=== PATIENT | female | born 1980 | race Caucasian/White ===

== ENCOUNTER 2018-03-13 16:00 | Inpatient (IN) | payer OTHER ==
[2018-03-13] MEDS ORDERED: CEFAZOLIN 3 GM in DEXTROSE 5% 100 ML IV (17:00)
[2018-03-13] MEDS ORDERED: METHYLERGONOVINE 0.2 MG INJ IM (17:00)
[2018-03-13] MEDS ORDERED: CARBOPROST 250 MCG INJ IM (17:00)
[2018-03-13] MEDS ORDERED: OXYTOCIN 30 UNITS/LR 500 ML IV ×2 (17:00→20:14)
[2018-03-13] MEDS: LACTATED RINGER'S 1,000 ML IV ×2 (17:14→19:29)
[2018-03-13 17:24] LABS: ADD MAN DIFF? NO
[2018-03-13 17:26] LABS: WHITE BLOOD COUNT 8.4 10^3/ul (4.8-10.8)
[2018-03-13 17:26] LABS: BASOPHILS % 0.5 % (0.0-2.0); EOSINOPHILS # 0.2 10^3/ul (0.0-0.5); EOSINOPHILS % 2.4 % (0.0-7.0); HEMATOCRIT 36.8 % (37.0-47.0); HEMOGLOBIN 12.4 g/dl (12.0-16.0); LYMPHOCYTES # 2.6 10^3/ul (0.8-2.9); LYMPHOCYTES % 30.7 % (15.0-51.0); MEAN CORPUSCULAR HEMOGLOBIN 29.9 pg (29.0-33.0); MEAN CORPUSCULAR HGB CONC 33.7 g/dl (32.0-37.0); MEAN CORPUSCULAR VOLUME 88.7 fl (82.0-101.0); MEAN PLATELET VOLUME 9.4 fl (7.4-10.4); MONOCYTE # 0.8 10^3/ul (0.3-0.9); MONOCYTES % 9.1 % (0.0-11.0); NEUTROPHIL # 4.8 10^3/ul (1.6-7.5); NEUTROPHILS % 56.8 % (39.0-77.0); PLATELET COUNT 284 10^3/UL (140-415); RED BLOOD COUNT 4.15 10^6/ul (4.20-5.40); RED CELL DISTRIBUTION WIDTH 13.4 % (11.5-14.5)
[2018-03-13 17:45] LABS: INR 0.93; PROTIME 12.5 Sec (11.9-14.9)
[2018-03-13 17:46] LABS: PARTIAL THROMBOPLASTIN TIME 31.5 Sec (25.0-35.0)
[2018-03-13 18:24] LABS: AMPHETAMINE/METHAMPHETAMINE NEGATIVE (NEGATIVE); BARBITURATES NEGATIVE (NEGATIVE); BENZODIAZEPINES NEGATIVE (NEGATIVE); CANNABINOIDS NEGATIVE (NEGATIVE); COCAINE NEGATIVE (NEGATIVE); OPIATES NEGATIVE (NEGATIVE)
[2018-03-13 18:24] LABS: HEPATITIS B SURFACE ANTIGEN NEGATIVE (NEGATIVE)
[2018-03-13] MEDS: FAMOTIDINE 20 MG INJ IV (19:28)
[2018-03-13] MEDS: METOCLOPRAMIDE 10 MG INJ IV (19:29)
[2018-03-13] MEDS ORDERED: morphine SULFATE/PF (10 MG/10 ML) INJ (19:48)
[2018-03-13] MEDS ORDERED: FENTAnyl 50 MCG/ML VIAL (19:48)
[2018-03-13] MEDS ORDERED: BUPIVACAINE 0.75%/DEXT (SPINAL) 2 ML INJ (19:48)
[2018-03-13] MEDS ORDERED: PHENYLephrine (100 MCG/ML) 5ML SYG (19:50)
[2018-03-13] MEDS ORDERED: ONDANSETRON 4 MG INJ (20:06)
[2018-03-13] MEDS ORDERED: DEXAMETHASONE 4 MG/ML 1 ML INJ (20:06)
[2018-03-13] MEDS ORDERED: ZOLPIDEM 5 MG TAB PO (22:30)
[2018-03-13] MEDS ORDERED: ONDANSETRON 4 MG INJ IV (22:30)
[2018-03-13] MEDS ORDERED: NALOXONE (0.4 MG/ML) INJ IV (22:30)
[2018-03-13] MEDS ORDERED: HYDROmorphONE 0.5 MG/0.5 ML SYG IV ×2 (22:30)
[2018-03-13] MEDS ORDERED: KETOROLAC 30 MG INJ IV (22:30)
[2018-03-13] MEDS: OXYTOCIN 30 UNITS/LR 500 ML IV (23:07)
[2018-03-13] MEDS: DIPHENHYDRAMINE 50 MG INJ IV (23:09)
[2018-03-13] MEDS ORDERED: DEXTROSE 5%-LR 1,000 ML IV (23:47)
[2018-03-14] MEDS ORDERED: METHYLERGONOVINE 0.2 MG INJ IM
[2018-03-14] MEDS ORDERED: METHYLERGONOVINE 0.2 MG TAB PO
[2018-03-14] MEDS ORDERED: MISOPROSTOL 200 MCG TAB PR
[2018-03-14] MEDS ORDERED: MAGNESIUM HYDROXIDE 30ML CUP PO
[2018-03-14] MEDS ORDERED: CARBOPROST 250 MCG INJ IM
[2018-03-14] MEDS ORDERED: LANOLIN 7 GM TUBE TOP
[2018-03-14] MEDS ORDERED: OXYTOCIN 30 UNITS/LR 500 ML IV
[2018-03-14] MEDS: MISOPROSTOL 200 MCG TAB PR (00:22)
[2018-03-14] MEDS: SENNA/DOCUSATE NA (8.6MG/50MG) TAB PO ×2 (08:30→20:40)
[2018-03-14] MEDS: OXYTOCIN 30 UNITS/LR 500 ML IV (08:33)
[2018-03-14 09:14] LABS: ADD MAN DIFF? NO
[2018-03-14 09:26] LABS: BASOPHILS % 0.2 % (0.0-2.0); EOSINOPHILS % 0.1 % (0.0-7.0); HEMOGLOBIN 11.9 g/dl (12.0-16.0); LYMPHOCYTES # 1.8 10^3/ul (0.8-2.9); LYMPHOCYTES % 10.9 % (15.0-51.0); MEAN CORPUSCULAR HEMOGLOBIN 30.5 pg (29.0-33.0); MEAN CORPUSCULAR VOLUME 89.7 fl (82.0-101.0); MEAN PLATELET VOLUME 9.8 fl (7.4-10.4); MONOCYTES % 6.2 % (0.0-11.0); NEUTROPHIL # 13.5 10^3/ul (1.6-7.5); NEUTROPHILS % 82.1 % (39.0-77.0); PLATELET COUNT 266 10^3/UL (140-415); RED CELL DISTRIBUTION WIDTH 13.3 % (11.5-14.5)
[2018-03-14 09:26] LABS: WHITE BLOOD COUNT 16.4 10^3/ul (4.8-10.8)
[2018-03-14 16:12] LABS: RPR TITER 1:32 (0)
[2018-03-14 16:12] LABS: RAPID PLASMA REAGIN REACTIVE (NR)
[2018-03-14] MEDS: HYDROCODONE/APAP (5/325) TAB PO ×2 (20:40→22:00)
[2018-03-14] MEDS: IBUPROFEN 800 MG TAB PO (23:23)
[2018-03-15] MEDS: HYDROCODONE/APAP (5/325) TAB PO ×4 (06:01→22:40)
[2018-03-15] MEDS: IBUPROFEN 800 MG TAB PO ×3 (06:01→22:39)
[2018-03-15] MEDS: SENNA/DOCUSATE NA (8.6MG/50MG) TAB PO ×2 (09:08→22:39)
[2018-03-16] MEDS: HYDROCODONE/APAP (5/325) TAB PO ×3 (05:51→21:54)
[2018-03-16] MEDS: IBUPROFEN 800 MG TAB PO ×3 (05:51→21:54)
[2018-03-16] MEDS: MEASLES,MUMPS,RUBELLA VACCINE INJ SC* (09:00)
[2018-03-16] MEDS: SENNA/DOCUSATE NA (8.6MG/50MG) TAB PO ×2 (09:27→21:54)
[2018-03-16 16:27] LABS: FLUORESCENT TREPONEMAL AB REACTIVE (NON-REACTIVE)
[2018-03-16 16:49] LABS: ADD MAN DIFF? NO
[2018-03-16 16:51] LABS: WHITE BLOOD COUNT 7.5 10^3/ul (4.8-10.8)
[2018-03-16 16:51] LABS: BASOPHILS % 0.5 % (0.0-2.0); EOSINOPHILS # 0.3 10^3/ul (0.0-0.5); EOSINOPHILS % 3.9 % (0.0-7.0); HEMATOCRIT 32.6 % (37.0-47.0); HEMOGLOBIN 10.8 g/dl (12.0-16.0); LYMPHOCYTES # 2.1 10^3/ul (0.8-2.9); LYMPHOCYTES % 27.3 % (15.0-51.0); MEAN CORPUSCULAR HEMOGLOBIN 30.3 pg (29.0-33.0); MEAN CORPUSCULAR HGB CONC 33.1 g/dl (32.0-37.0); MEAN CORPUSCULAR VOLUME 91.3 fl (82.0-101.0); MEAN PLATELET VOLUME 9.5 fl (7.4-10.4); MONOCYTE # 0.7 10^3/ul (0.3-0.9); MONOCYTES % 9.3 % (0.0-11.0); NEUTROPHIL # 4.4 10^3/ul (1.6-7.5); NEUTROPHILS % 58.6 % (39.0-77.0); PLATELET COUNT 269 10^3/UL (140-415); RED BLOOD COUNT 3.57 10^6/ul (4.20-5.40); RED CELL DISTRIBUTION WIDTH 13.2 % (11.5-14.5)
[2018-03-17] MEDS: IBUPROFEN 800 MG TAB PO ×2 (05:42→15:08)
[2018-03-17] MEDS: HYDROCODONE/APAP (5/325) TAB PO ×2 (05:42→14:00)
[2018-03-17] MEDS: SENNA/DOCUSATE NA (8.6MG/50MG) TAB PO (09:00)
[2018-03-17] MEDS: DIPHTH/TET/ACEL PERTUSS (ADULT) 0.5 ML VIAL IM* (12:14)
[2018-03-17 19:11] LABS: FLUORESCENT TREPONEMAL AB REACTIVE (NON-REACTIVE)
== END 2018-03-17 16:02 | disposition home or self-care (01) | DRG 765 ==
LOC: PP1 03-14 02:55 → L-D 16:00
PROC: 10D00Z1 Extraction of Products of Conception, Low, Open Approach (ICD-10-PCS; principal; 2018-03-13 19:30)
PROC: 0UB70ZZ Excision of Bilateral Fallopian Tubes, Open Approach (ICD-10-PCS; 2018-03-13 19:30)
DX: O69.81X0 Labor and delivery complicated by cord around neck, without compression, not applicable or unspecified (principal); Z68.43 Body mass index [BMI] 50.0-59.9, adult; O69.2XX0 Labor and delivery complicated by other cord entanglement, with compression, not applicable or unspecified; O99.214 Obesity complicating childbirth; E66.01 Morbid (severe) obesity due to excess calories; O99.824 Streptococcus B carrier state complicating childbirth; O89.4 Spinal and epidural anesthesia-induced headache during the puerperium; Z3A.39 39 weeks gestation of pregnancy; Z37.0 Single live birth; Z30.2 Encounter for sterilization; Z86.19 Personal history of other infectious and parasitic diseases
CPT/HCPCS: 80307; 85025; 85610; 85730; 86592; 86850; 86900; 86901; 87285; 87340; 88302; 90715; 99464